=== PATIENT | male | born 1950 | race Caucasian/White ===

== ENCOUNTER 2016-12-12 13:55 | Inpatient (IN) | payer MEDICAID ==
[~2016-12-12] VITALS: Ht 172.7 cm; Wt 80.9 kg
[2016-12-12] MEDS ORDERED: NIFE10 PO (14:06)
[2016-12-12] MEDS ORDERED: TAMS0.4C32 PO (14:06)
[2016-12-12 14:26] LABS: BASOPHILS % (AUTO) 0.2 % (0.0-2.0); EOSINOPHILS % (AUTO) 0 % (1.0-6.0); HEMATOCRIT 35.7 % (41-53); HEMOGLOBIN 11.5 g/dL (13.5-17.5); LYMPHOCYTES # (AUTO) 0.7 K/uL (1.0-4.8); LYMPHOCYTES % (AUTO) 3.1 % (22.0-44.0); MEAN CORPUSCULAR HEMOGLOBIN 32.2 pg (26.0-34.0); MEAN CORPUSCULAR HGB CONC 32.1 G/dL (31.0-37.0); MEAN CORPUSCULAR VOLUME 100 fL (80-100); MONOCYTES # (AUTO) 0.9 K/uL (0.1-1.0); MONOCYTES % (AUTO) 3.6 % (2.0-9.0); NEUTROPHILS # (AUTO) 22.7 K/uL (1.8-7.7); PLATELET COUNT (AUTO) 170 K/uL (150-450); RED BLOOD CELL COUNT(AUTO) 3.56 MIL/uL (4.50-5.90); RED CELL DISTRIBUTION WIDTH 14.8 % (11.5-14.5); WHITE BLOOD COUNT (AUTO) 24.4 K/uL (4.5-11.0)
[2016-12-12 14:27] LABS: NEUTROPHILS % (AUTO) 93.1 % (40.0-70.0)
[2016-12-12 14:39] LABS: ALANINE AMINOTRANSFERASE 11 U/L (12-78); ALBUMIN 3.5 g/dL (3.4-5.0); ANION GAP 17 mmol/L (8-16); ASPARTATE AMINOTRANSFERASE < 5 U/L (15-37); BILIRUBIN,TOTAL 0.5 mg/dL (0.1-1.0); CALCIUM, TOTAL 10.3 mg/dL (8.8-10.5); CARBON DIOXIDE 21 mmol/L (22-29); CHLORIDE 95 mmol/L (98-107); GLOMERULAR FILTR. RATE CALC 2 mL/min (>60); POTASSIUM 5.9 mmol/L (3.5-5.1); SODIUM SERUM 133 mmol/L (136-145); TOTAL PROTEIN, SERUM 7.7 g/dL (6.4-8.2)
[2016-12-12 14:43] LABS: UREA NITROGEN, BLOOD 111 mg/dL (7-18)
[2016-12-12 15:46] LABS: RBC MORPHOLOGY COMMENT ABNORMAL RBC MORPH
[2016-12-12] MEDS ORDERED: BARIUM SULFATE 0.1% SUSPENSION 450 ML BOTTLE PO ONE (16:00)
[2016-12-12] MEDS ORDERED: MORPHINE SULFATE 4 MG/ML SYRINGE IVP ONE (16:00)
[2016-12-12] MEDS ORDERED: ONDANSETRON HCL 4 MG/2 ML VIAL IVP PRN ×2 (17:30→22:45)
[2016-12-12] MEDS ORDERED: MORPHINE SULFATE 4 MG/ML SYRINGE IVP PRN (17:30)
[2016-12-12] MEDS: PIPERACILLIN SODIUM/TAZOBACTAM 2.25 GM in DEXTROSE 5%-WATER 50 ML IV SCH (18:44)
[2016-12-12] MEDS ORDERED: SODIUM CHLORIDE 0.9% 100 ML ONE (18:47)
[2016-12-12] MEDS ORDERED: IOVERSOL 320 MG/ML 100 ML VIAL ONE (18:47)
[2016-12-12] MEDS ORDERED: SODIUM CHLORIDE 0.9% 2,000 ML IV ONE (20:35)
[2016-12-12] MEDS ORDERED: ALBUTEROL SULFATE 2.5 MG/0.5 ML NEB SOLUTION NEB PRN (22:45)
[2016-12-12] MEDS ORDERED: MAGNESIUM HYDROXIDE SUSPENSION 30 ML UDCUP PO PRN (22:45)
[2016-12-12] MEDS ORDERED: ACETAMINOPHEN 325 MG TABLET PO PRN (22:45)
[2016-12-12] MEDS ORDERED: IPRATROPIUM BROMIDE 0.5 MG/2.5 ML NEB SOLUTION NEB PRN (22:45)
[2016-12-12] MEDS ORDERED: ZOLPIDEM TARTRATE 5 MG TABLET PO PRN (22:45)
[2016-12-12] MEDS ORDERED: BISACODYL 10 MG RECTAL RECTAL SUPPOSITORY PR PRN (22:45)
[2016-12-12] MEDS ORDERED: MORPHINE SULFATE 2 MG/ML SYRINGE IVP PRN (23:00)
[2016-12-12] MEDS ORDERED: LEVOFLOXACIN 750 MG/D5% WATER 150 ML IV ONE (23:00)
[2016-12-12] MEDS ORDERED: CloNIDine HCL 0.1 MG TABLET PO PRN (23:15)
[2016-12-13] VITALS (7 sets, daily range): BP systolic 106–157; BP diastolic 59–90
[2016-12-13] MEDS ORDERED: SODIUM CHLORIDE 0.9% 500 ML IV ONE (00:31)
[2016-12-13] MEDS: HEPARIN SODIUM,PORCINE 5,000 UNITS/ML VIAL SQ SCH ×4 (00:37→23:52)
[2016-12-13] MEDS: MetroNIDAZOLE 500 MG/NACL 100 ML IV SCH ×4 (02:46→23:53)
[2016-12-13] MEDS: PIPERACILLIN SODIUM/TAZOBACTAM 2.25 GM in DEXTROSE 5%-WATER 50 ML IV SCH ×3 (04:10→20:10)
[2016-12-13 07:13] LABS: BASOPHILS # (AUTO) 0.02 K/uL (0.00-0.20); BASOPHILS % (AUTO) 0.1 % (0.0-2.0); EOSINOPHILS # (AUTO) 0.02 K/uL (0.00-0.70); EOSINOPHILS % (AUTO) 0.12 % (1.0-6.0); HEMATOCRIT 33.8 % (41-53); LYMPHOCYTES # (AUTO) 0.6 K/uL (1.0-4.8); MEAN CORPUSCULAR HEMOGLOBIN 33.1 pg (26.0-34.0); MEAN CORPUSCULAR HGB CONC 32.5 G/dL (31.0-37.0); MEAN CORPUSCULAR VOLUME 102 fL (80-100); MONOCYTES # (AUTO) 1.2 K/uL (0.1-1.0); MONOCYTES % (AUTO) 6.3 % (2.0-9.0); NEUTROPHILS # (AUTO) 17.5 K/uL (1.8-7.7); PLATELET COUNT (AUTO) 160 K/uL (150-450); RED BLOOD CELL COUNT(AUTO) 3.32 MIL/uL (4.50-5.90); RED CELL DISTRIBUTION WIDTH 14.5 % (11.5-14.5); WHITE BLOOD COUNT (AUTO) 19.3 K/uL (4.5-11.0)
[2016-12-13 07:25] LABS: ALANINE AMINOTRANSFERASE 9 U/L (12-78); ALBUMIN 2.9 g/dL (3.4-5.0); ANION GAP 12 mmol/L (8-16); ASPARTATE AMINOTRANSFERASE < 5 U/L (15-37); BILIRUBIN,TOTAL 0.5 mg/dL (0.1-1.0); CALCIUM, TOTAL 9.6 mg/dL (8.8-10.5); CARBON DIOXIDE 25 mmol/L (22-29); CHLORIDE 96 mmol/L (98-107); CREATININE 14.24 mg/dL (0.60-1.30); GLOMERULAR FILTR. RATE CALC 3 mL/min (>60); PHOSPHORUS 5.4 mg/dL (2.5-4.9); POTASSIUM 5.1 mmol/L (3.5-5.1); SODIUM SERUM 133 mmol/L (136-145); UREA NITROGEN, BLOOD 70 mg/dL (7-18)
[2016-12-13 07:32] LABS: NEUTROPHILS % (AUTO) 90.4 % (40.0-70.0)
[2016-12-13 08:16] LABS: RBC MORPHOLOGY COMMENT ABNORMAL RBC MORPH
[2016-12-13] MEDS: PANTOPRAZOLE SODIUM 40 MG/VIAL IVP SCH (08:16)
[2016-12-13] MEDS: DOCUSATE SODIUM 100 MG CAPSULE PO SCH ×2 (08:16→20:11)
[2016-12-13] MEDS: TAMSULOSIN HCL 0.4 MG CAPSULE PO SCH (08:16)
[2016-12-13] MEDS ORDERED: NIFEdipine 60 MG ER TABLET PO SCH (09:00)
[2016-12-13] MEDS: HYDROCODONE/ACETAMINOPHEN 5-325 MG TABLET PO PRN (16:50)
[2016-12-14] MEDS: PIPERACILLIN SODIUM/TAZOBACTAM 2.25 GM in DEXTROSE 5%-WATER 50 ML IV SCH ×3 (04:20→20:55)
[2016-12-14 04:54] VITALS: BP 121/75
[2016-12-14 07:30] LABS: BASOPHILS % (AUTO) 0.2 % (0.0-2.0); EOSINOPHILS % (AUTO) 0.9 % (1.0-6.0); HEMATOCRIT 32.9 % (41-53); HEMOGLOBIN 10.5 g/dL (13.5-17.5); LYMPHOCYTES # (AUTO) 0.8 K/uL (1.0-4.8); LYMPHOCYTES % (AUTO) 5.8 % (22.0-44.0); MEAN CORPUSCULAR HEMOGLOBIN 32.4 pg (26.0-34.0); MEAN CORPUSCULAR HGB CONC 31.9 G/dL (31.0-37.0); MEAN CORPUSCULAR VOLUME 102 fL (80-100); NEUTROPHILS # (AUTO) 11.1 K/uL (1.8-7.7); NEUTROPHILS % (AUTO) 85.1 % (40.0-70.0); PLATELET COUNT (AUTO) 186 K/uL (150-450); RED BLOOD CELL COUNT(AUTO) 3.24 MIL/uL (4.50-5.90); RED CELL DISTRIBUTION WIDTH 14.7 % (11.5-14.5)
[2016-12-14 07:42] LABS: RBC MORPHOLOGY COMMENT ABNORMAL RBC MORPH
[2016-12-14] MEDS ORDERED: SODIUM CHLORIDE 0.9% 2,000 ML IV ONE (07:44)
[2016-12-14 07:48] VITALS: BP 136/86
[2016-12-14 07:51] LABS: CALCIUM, TOTAL 9.8 mg/dL (8.8-10.5); CREATININE 16.43 mg/dL (0.60-1.30); MAGNESIUM 2.5 mg/dL (1.80-2.40); PHOSPHORUS 7.2 mg/dL (2.5-4.9); POTASSIUM 5.7 mmol/L (3.5-5.1)
[2016-12-14] MEDS ORDERED: LIDOCAINE HCL/PF 1% 2 ML VIAL INJ ONE ×2 (08:00→12:00)
[2016-12-14] MEDS: HEPARIN SODIUM,PORCINE 5,000 UNITS/ML VIAL SQ SCH ×2 (08:00→16:22)
[2016-12-14] MEDS: MetroNIDAZOLE 500 MG/NACL 100 ML IV SCH ×2 (08:00→16:22)
[2016-12-14] MEDS ORDERED: ALBUMIN HUMAN 25%-12.5GM/50ML IV BOTTLE IV PRN (08:15)
[2016-12-14] MEDS ORDERED: MANNITOL 25%-12.5 GM/50 ML VIAL IVP PRN (08:15)
[2016-12-14] MEDS ORDERED: LIDOCAINE HCL/PF 1% 2 ML VIAL ID PRN (08:15)
[2016-12-14] MEDS: NIFEdipine 30 MG ER TABLET PO SCH (09:00)
[2016-12-14] MEDS: DOCUSATE SODIUM 100 MG CAPSULE PO SCH ×2 (13:53→20:55)
[2016-12-14] MEDS: TAMSULOSIN HCL 0.4 MG CAPSULE PO SCH (13:53)
[2016-12-14] MEDS: PANTOPRAZOLE SODIUM 40 MG/VIAL IVP SCH (13:53)
[2016-12-14] MEDS: HYDROCODONE/ACETAMINOPHEN 5-325 MG TABLET PO PRN ×2 (13:55→20:57)
[2016-12-14 16:02] VITALS: BP 127/79
[2016-12-14] MEDS ORDERED: SODIUM CHLORIDE 0.9% 250 ML IV ONE (16:19)
[2016-12-14 20:52] VITALS: BP 119/75
[2016-12-14] MEDS ORDERED: LEVOFLOXACIN 500 MG/D5% WATER 100 ML IV SCH (23:00)
[2016-12-15] VITALS (7 sets, daily range): BP systolic 131–144; BP diastolic 78–97
[2016-12-15] MEDS: MetroNIDAZOLE 500 MG/NACL 100 ML IV SCH ×3 (00:14→14:58)
[2016-12-15] MEDS: HEPARIN SODIUM,PORCINE 5,000 UNITS/ML VIAL SQ SCH ×3 (00:15→15:17)
[2016-12-15] MEDS: PIPERACILLIN SODIUM/TAZOBACTAM 2.25 GM in DEXTROSE 5%-WATER 50 ML IV SCH ×3 (05:05→20:34)
[2016-12-15 07:04] LABS: BASOPHILS % (AUTO) 0.3 % (0.0-2.0); EOSINOPHILS % (AUTO) 1.3 % (1.0-6.0); HEMATOCRIT 36.3 % (41-53); HEMOGLOBIN 11.6 g/dL (13.5-17.5); LYMPHOCYTES # (AUTO) 0.8 K/uL (1.0-4.8); LYMPHOCYTES % (AUTO) 6.8 % (22.0-44.0); MEAN CORPUSCULAR HEMOGLOBIN 32.4 pg (26.0-34.0); MEAN CORPUSCULAR VOLUME 101 fL (80-100); MONOCYTES # (AUTO) 1.1 K/uL (0.1-1.0); MONOCYTES % (AUTO) 9.1 % (2.0-9.0); NEUTROPHILS # (AUTO) 9.8 K/uL (1.8-7.7); NEUTROPHILS % (AUTO) 82.5 % (40.0-70.0); PLATELET COUNT (AUTO) 206 K/uL (150-450); RED BLOOD CELL COUNT(AUTO) 3.59 MIL/uL (4.50-5.90); RED CELL DISTRIBUTION WIDTH 14.8 % (11.5-14.5); WHITE BLOOD COUNT (AUTO) 11.9 K/uL (4.5-11.0)
[2016-12-15 07:06] LABS: CALCIUM, TOTAL 10.2 mg/dL (8.8-10.5); CREATININE 11.2 mg/dL (0.60-1.30); MAGNESIUM 2.5 mg/dL (1.80-2.40); PHOSPHORUS 6.7 mg/dL (2.5-4.9); POTASSIUM 4.9 mmol/L (3.5-5.1)
[2016-12-15] MEDS: TAMSULOSIN HCL 0.4 MG CAPSULE PO SCH (08:35)
[2016-12-15] MEDS: PANTOPRAZOLE SODIUM 40 MG/VIAL IVP SCH (08:35)
[2016-12-15] MEDS: DOCUSATE SODIUM 100 MG CAPSULE PO SCH ×2 (08:35→20:33)
[2016-12-15] MEDS: NIFEdipine 30 MG ER TABLET PO SCH (08:35)
[2016-12-15] MEDS ORDERED: SODIUM CHLORIDE 0.9% 250 ML IV ONE (12:16)
[2016-12-16] MEDS: HEPARIN SODIUM,PORCINE 5,000 UNITS/ML VIAL SQ SCH ×2 (01:03→08:00)
[2016-12-16] MEDS: MetroNIDAZOLE 500 MG/NACL 100 ML IV SCH ×2 (01:03→08:00)
[2016-12-16] MEDS ORDERED: SODIUM CHLORIDE 0.9% 250 ML IV ONE (01:06)
[2016-12-16] MEDS: PIPERACILLIN SODIUM/TAZOBACTAM 2.25 GM in DEXTROSE 5%-WATER 50 ML IV SCH ×2 (04:12→12:00)
[2016-12-16 04:48] VITALS: BP 136/83
[2016-12-16 07:16] VITALS: BP 149/91
[2016-12-16] MEDS ORDERED: SODIUM CHLORIDE 0.9% 2,000 ML IV ONE (07:37)
[2016-12-16 11:43] VITALS: BP 150/95
[2016-12-16] MEDS: TAMSULOSIN HCL 0.4 MG CAPSULE PO SCH (11:46)
[2016-12-16] MEDS: DOCUSATE SODIUM 100 MG CAPSULE PO SCH (11:46)
[2016-12-16] MEDS: NIFEdipine 30 MG ER TABLET PO SCH (11:46)
[2016-12-16] MEDS: PANTOPRAZOLE SODIUM 40 MG/VIAL IVP SCH (11:47)
[2016-12-16] MEDS ORDERED: METR500 PO (12:02)
[2016-12-16] MEDS ORDERED: LEVO500 PO (12:03)
== END 2016-12-16 12:10 | disposition home or self-care (01) | DRG 720 ==
LOC: EMS 13:58 → EDSEX 13:58 → 6N 18:35
PROVIDERS: ADMIT Hospitalist; ATTEND Hospitalist
PROC: 5A1D60Z (ICD-10-PCS; principal; 2016-12-14)
DX: A41.9 Sepsis, unspecified organism (principal); N13.39 Other hydronephrosis; K57.32 Diverticulitis of large intestine without perforation or abscess without bleeding; N18.6 End stage renal disease; I12.0 Hypertensive chronic kidney disease with stage 5 chronic kidney disease or end stage renal disease; N13.8 Other obstructive and reflux uropathy; E87.5 Hyperkalemia; E78.5 Hyperlipidemia, unspecified; F17.210 Nicotine dependence, cigarettes, uncomplicated; R16.2 Hepatomegaly with splenomegaly, not elsewhere classified; K59.00 Constipation, unspecified; N40.1 Benign prostatic hyperplasia with lower urinary tract symptoms; J98.11 Atelectasis; Z99.2 Dependence on renal dialysis; Z79.899 Other long term (current) drug therapy; Z91.19 Patient's noncompliance with other medical treatment and regimen
CPT/HCPCS: 74176; 83605; 83735; 84100; 87040; 87081; 87340; 90935; 93005; 93306; 96365; 96375; 96376; 99285; C9113; J1644; J1956; J2270; J2543; J3490; J7030; J7040; J7050; J7060